=== PATIENT | female | born 1970 | race African-American/Black ===

== ENCOUNTER 2020-12-29 21:46 | Emergency (ER) | payer MEDICAID ==
[~2020-12-29] VITALS: Ht 157.5 cm; Wt 95.6 kg
[2020-12-30] MEDS ORDERED: IBUPROFEN 600MG TABLET PO STA (01:14)
[2020-12-30] MEDS ORDERED: SODIUM CHLORIDE 0.9% 1,000 ML IV ONE (01:15)
[2020-12-30 01:50] LABS: BASOPHILS % 0.6 % (0.0-2.0); EOSINOPHILS % 3.6 % (0.0-5.0); HEMATOCRIT. 41.3 % (36.0-48.0); HEMOGLOBIN. 13.1 g/dL (12.0-16.0); LYMPHOCYTES % 39.1 % (20.0-50.0); MEAN CORPUSCULAR HEMOGLOBIN 27.7 pg (28.0-32.0); MEAN CORPUSCULAR VOLUME 87.2 fL (81.0-99.0); MEAN PLATELET VOLUME 8.3 fl (7.4-10.4); MONOCYTES % 6.4 % (2.0-8.0); NEUTROPHILS % 50.3 % (40.0-76.0); PLATELET 269 x1000/uL (130-400); RED BLOOD CELL COUNT 4.74 mill/uL (4.2-5.4); RED CELL DISTRIBUTION WIDTH 13.2 % (11.6-14.6)
[2020-12-30 01:57] LABS: CHLORIDE 108 mEq/L (98-107)
[2020-12-30] MEDS ORDERED: TRAM50TA3 MT (02:31)
[2020-12-30 03:40] VITALS: BP 131/64
== END 2020-12-30 05:01 | disposition home or self-care (01) ==
LOC: ER 21:46
DX: M25.512 Pain in left shoulder (principal); R00.2 Palpitations; E11.65 Type 2 diabetes mellitus with hyperglycemia
CPT/HCPCS: 36415; 71045; 73030; 80053; 82962; 83690; 84443; 84484; 85025; 96360; 99284; J7030